=== PATIENT | female | born 1955 | race Caucasian/White ===

== ENCOUNTER 2023-11-23 09:29 | Outpatient (RCR) | payer OTHER, SELFPAY ==
[2023-11-23 09:40] VITALS: BP 144/56
[2023-11-23] MEDS: TYLENOL 1000 MG PO (09:50)
[2023-11-23] MEDS: BENADRYL 25 MG PO (09:50)
[2023-11-23] MEDS: INJECTAFER 265 MG IV (09:52)
[2023-11-23] MEDS: NSS 250 IV (09:52)
== END 2023-12-11 23:59 | disposition home or self-care (01) ==
LOC: OID 09:29
PROVIDERS: ATTENDING PHYSICIAN Physician Assistant; FAMILY PHYSICIAN Family Medicine
DX: T84.53XA Infection and inflammatory reaction due to internal right knee prosthesis, initial encounter (principal); M00.861 Arthritis due to other bacteria, right knee; B96.89 Other specified bacterial agents as the cause of diseases classified elsewhere; D50.9 Iron deficiency anemia, unspecified; E66.01 Morbid (severe) obesity due to excess calories; Z68.41 Body mass index [BMI] 40.0-44.9, adult; Z72.0 Tobacco use
CPT/HCPCS: 96365; J1439

== ENCOUNTER 2023-11-28 08:08 | Inpatient (IN) | payer OTHER, SELFPAY ==
--- NOTE | 2023-11-02 09:48 | CM ---
Patient is scheduled for a 2nd R TK Revision on 11/28/23. Spoke with patient prior to surgery via telephone. Patient had a R TKR, 1st stage R TK Revision at in 2022. Reintroduced role of Orthopedic Navigator. Patient reports that she lives with
her in a one story home. There are four steps to enter. She currently requires assistance with showers and otherwise functions independently. She uses either a rolling walker or wheel chair. She states that she doesn't go out of the house
much and has difficulty with steps. She also has a cane, raised toilet seat and shower seat. She has had VN services through VN. PCP is Dr. Yevgeniy Bain.
Discussed orthopedic program and post surgical plans. Reviewed anticipated length of stay and that goal is for her to return home at discharge. Discussed outpatient PT vs VN services. Patient is in agreement with tentative plan and will benefit from
VN services. She will have support from her when she goes home.
Patient will complete online education.
Plan: Orthopedic Navigator will remain available to assist with the care of patient and will reassess discharge needs after surgery.
--- NOTE | 2023-11-11 11:50 | HPS.HSE ---
Family Physician
-
Family Physician: Christopher Bain
Chief Complaint
-
Infection of right internal knee prosthesis.
History of Present Illness
The patient is a 68-year-old morbidly obese, female presenting today for an infection of her right internal knee prosthesis. The patient previously underwent a first stage revision of her previous right total knee arthroplasty in June
[address] Sim Carter. Infection was felt likely secondary to her continued tobacco abuse despite multiple advisements to stop tobacco products entirely. She was, apparently, smoking upwards of 2 packs of cigarettes per day
nga-operatively. A wound culture of the right knee taken intra-operatively would be positive for MSSA. Per infectious disease advisement, she was initially treated with Cephalexin 500 mg four times a day pre-operatively with a transition to IV
Ancef 2 grams every 8 hours post-procedure for 6 weeks. With treatment, inflammatory markers have steadily trended down and she is now ready for her second stage revision. She denies any current complaints today such as chest pain, shortness of
breath at rest, palpitations, nausea, vomiting, diarrhea, dizziness, lightheadedness, cough, sore throat, or fever.
Medical History
Past Medical History
Past Medical History: Reports Other
Additional Past Medical History:
1. 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 Sim Carter.
2. Osteoarthritis, status post right total knee arthroplasty, 03/14/2023, by Dr. Sim Carter.
3. Hypertension.
4. Hyperlipidemia.
5. Coronary artery disease, non-obstructive.
6. Mild tricuspid regurgitation.
7. Mild pulmonary hypertension.
8. Recurrent TIA, 1999 and 2001, with residual neuropathic pain of right lower extremity.
9. COPD.
10. Restrictive lung disease.
11. Obstructive sleep apnea, no current CPAP.
12. Chronic dyspnea on exertion, multifactorial.
13. GERD.
14. Hiatal hernia.
15. Lynn's esophagus.
16. Diverticulosis.
17. Melanoma, status post MOHS.
18. Multifactorial anemia, status post Injectafer.
19. Anxiety.
20. Prediabetes, A1c 6.3.
21. Morbid obesity, BMI 50.0.
22. Current tobacco abuse.
Past Surgical History: Reports Other
Additional Past Surgical History:
1. First stage revision of right total knee arthroplasty, 06/2023, by Dr. Sim Carter.
2. Right total knee arthroplasty, 03/2023, by Dr. Sim Carter.
3. Hysterectomy.
4. Right breast cyst excision.
5. Renal biopsy.
6. MOHS.
7. Bilateral cataract extraction.
8. Colonoscopy.
9. Endoscopy.
Social History
Tobacco: Smoker (Current 3-4 cigarette per day smoker. She currently uses a daily Nicoderm patch in attempts to quit smoking altogether prior to surgery. )
Alcohol: None
Drug: Marijuana (Occasional, social use. )
Personal:
Living: Other (The patient lives in a one-story home with her . She reports that her home has 4 steps to enter in.)
Family History
Family History: Not pertinent
Allergies / Home Medications
Allergy/Medication List:
Home medications:
1. Acetaminophen 1000 mg p.o. daily.
2. Albuterol sulfate 2 puffs inhaled every 4 hours as needed.
3. Amlodipine 10 mg p.o. daily.
4. Aspirin 81 mg p.o. daily.
5. Atorvastatin 40 mg p.o. daily.
6. Tylenol PM 2 tablets p.o. at bedtime as needed.
7. Colace 100 mg p.o. daily as needed.
8. Duloxetine 90 mg p.o. daily.
9. Cyclobenzaprine 10 mg p.o. at bedtime.
10. Furosemide 20 mg p.o. daily as needed.
11. Gabapentin 600 mg p.o. daily.
12. Gabapentin 900 mg p.o. at bedtime.
13. Losartan 100 mg p.o. daily.
14. Metoprolol succinate 25 mg p.o. at bedtime.
15. Omeprazole 40 mg p.o. daily.
16. Oxycodone 5 mg p.o. at bedtime.
17. Trelegy-Ellipta 1 inhalation daily.
18. Imodium 2 mg p.o. daily as needed.
19. Nicoderm 21 mg patch, 1 patch topical daily.
20. Mupirocin 1 application topical twice a day.
21. Cyanocobalamin 1000 mcg p.o. daily.
22. Ferrous sulfate 325 mg p.o. daily.
ALLERGIES: Codeine. Penicillin (remote). Bactrim. IV contrast.
Review of Systems
-
A 12 point ROS was completed and negative except as noted: Yes
Physical Exam
Vital Signs
Blood pressure 131/60. Heart rate 79. Respirations 18. Pulse ox 97% on room air.
Height 5 feet, 1.5 inches. Weight 122.1 kg. BMI 50.0.
Physical Exam
General: Well Developed, Well Nourished and No Apparent Distress
HEENT: NormoCephalic, Moist mucous membranes, Atraumatic and PERRLA
Respiratory: Other (Diminished breath sounds throughout. )
Cardiac: Regular Rhythm
GI: Soft, Non Tender, Non Distended and Other (Morbidly obese. )
Musculoskeletal: Other (Surgical incision of right knee well healed. Minimal warmth. No erythema. )
Skin: Warm and Dry
Neuro: AO x 3 and Nonfocal/grossly intact
Laboratory Results
-
DIAGNOSTIC STUDIES as of 11/11/2023: White blood cell count 8.0. Hemoglobin 9.3. Platelet count 321,000. ESR 56. Sodium 137. Potassium 3.9. BUN 14. Creatinine 0.8. Glucose 137. Hemoglobin A1c 6.3. Calcium 8.5. AST 16. ALT 10. CRP 21.6. Iron 44. TIBC
372. Ferritin 14.6. Vitamin B12 214. Folate 6.9. MRSA screen negative.
EKG previously provided by Cardiology.
Right knee fluid culture 11/15/2023: No growth as of 11/19/2023.
Nuclear stress test 01/06/2023: Fixed defect in the apical lateral segment, consistent with soft tissue attenuation/bowel attenuation. Ejection fraction is 78%. This is a moderate risk study due to the pharmacological agent used.
�
Echocardiogram 11/05/2022: Ejection fraction greater than 75%. Mild concentric left ventricular hypertrophy. There is a mid cavity gradient of 14 mmHg at rest and increasing to 63 mmHg with Valsalva. Trace mitral regurgitation. Mildly sclerotic
aortic valve with no stenosis. Mild tricuspid regurgitation.
Impression/Plan
-
CLEARANCES:
1. Primary medical, Dr. Yevgeniy Bain, cleared.
Primary medical phone number: [phone].
2. Dental waived.
IMPRESSION/PLAN:
1. Infection of internal right knee prosthesis in need of a second stage revision of her right total knee arthroplasty with Dr. Sim Carter on 11/27/2022. The benefits and risks of the procedure have been explained to the patient. The patient
understands these risks and wishes to proceed.
2. DVT prophylaxis: Aspirin with bilateral venous compression devices. Plasma flow devices were highly encouraged to be used upon discharge.
3. Multifactorial anemia: The patient's hemoglobin will be monitored closely during admission. She is scheduled to receive one dose of IV Injectafer per the recommendations of Hematology pre-operatively. She is aware to continue her oral iron and
vitamin B12 supplement pre-operatively. Her hemoglobin will be checked days before her surgery to ensure stability.
4. Current tobacco abuse: The patient is aware that she must stop tobacco products entirely given her previous infection. She is actively taking measures to cut down and, hopefully, quit tobacco use altogether prior to her day of surgery.
Patient's phone number: [phone].
Patient's contact (Piyush Mccoy - Spouse): [phone].
[2023-11-11 12:41] VITALS: BMI 50.0
[2023-11-11 14:20] LABS: Hematocrit 29.3 % (37.0-47.0); Hemoglobin 9.3 g/dL (12.0-16.0); Mean Corp Hgb Conc. 31.7 g/dL (33.0-37.0); Mean Corpuscular Volume 81.8 fL (81.0-99.0); Mean Platelet Volume 9.6 fL (7.4-10.4); Platelet Count 321 10^3/uL (130-400); Red Blood Cell Count 3.58 10^6/uL (4.20-5.40)
[2023-11-11 14:32] LABS: ALT (SGPT) 10 U/L (0-35); AST (SGOT) 16 U/L (14-36); Albumin 3.5 g/dl (3.5-5.0); Alkaline Phosphatase 128 U/L (38-126); Blood Urea Nitrogen 14 mg/dl (7-17); Calcium 8.5 mg/dl (8.4-10.2); Carbon Dioxide 29 mmol/L (22-30); Chloride 103 mmol/L (98-107); Estimated Creatinine Clearance 84 ml/min; Glucose 137 mg/dl (70-99); Potassium 3.9 mmol/L (3.5-5.1); Sodium 137 mmol/L (135-145); Total Bilirubin 0.4 mg/dl (0.2-1.3); eGFR > 60.00
[2023-11-11 14:55] LABS: Erythrocyte Sed Rate 56 mm/hour (0-20)
[2023-11-11 15:53] VITALS: BMI 50.0
[2023-11-11 16:15] LABS: Reticulocyte Count 1.9 % (0.4-2.8)
[2023-11-11 16:28] LABS: Iron 44 ug/dl (37-170)
[2023-11-11 16:37] LABS: Percent Saturation 11 % (20-50); Total Iron Binding Capacity 372 ug/dl (265-497)
[2023-11-11 16:57] LABS: Ferritin 14.6 ng/ml (11.1-264.0)
[2023-11-11 17:27] LABS: Vitamin B12 214 pg/ml (239-931)
[2023-11-11 17:28] LABS: Folate 6.9 ng/ml (2.76-20)
[2023-11-12 11:41] LABS: Glycohemoglobin (HgbA1c) 6.3 % (4.0-5.6)
[2023-11-23 14:52] LABS: Hematocrit 28.5 % (37.0-47.0)
--- NOTE | 2023-11-24 10:18 | W.PN.UPDATE ---
Update Note
Progress Note Update
Repeat hgb 9.0. Previous hgb 9.3 on 11/11/2023.
Of note, patient has received 1 dose of IV Injectafer prior at the outpatient infusion center.
Discussed results with both surgeon and patient.
The patient reports she has been compliant w/ OTC iron and vitamin B12 daily.
The patient denies any recent epistaxis, hematemesis, hemoptysis, hematuria, or black stools.
Last colonoscopy and endoscopy revealing hiatal hernia and colon polyps in 04/2021. No signs of bleeding at that time.
Patient aware that we can still proceed w/ 2nd stage revision; however, she was notified that post-procedural blood transfusion would be likely.
Benefits and risks of transfusion reviewed through phone call 11/24/2023.
The patient states that she accepts the risks of transfusion should she need one and would still like to proceed as planned.
We will monitor her hgb closely during admission and provide her w/ IV iron in the hopes of minimizing potential transfusion.
The phone number to [facility] was also provided to the patient again for future evaluation of her anemia.
[2023-11-28] VITALS (12 sets, daily range): BP systolic 114–159; BP diastolic 56–91; BMI 50.0
[2023-11-28] MEDS: TYLENOL 650 MG PO ×3 (10:46→23:55)
[2023-11-28] MEDS: NORMOSOL-R 1000 IV ×2 (10:46→17:05)
[2023-11-28] MEDS: MOBIC 15 MG PO (10:46)
[2023-11-28] MEDS: VANCOCIN 300 MG IV (12:20)
[2023-11-28] MEDS: VANCOCIN 300 ML IV (12:20)
--- NOTE | 2023-11-28 14:17 | W.PN.UPDATE ---
Update Note
Progress Note Update
Infection of internal R total knee prosthesis s/p 2nd stage revision of R TKA w/ Dr Carter 11/28/23
- status post 1st stage revision of R TKA, 06/27/2023, by Dr Carter and 6 weeks of IV Ancef q8h
DVT prophylaxis - ASA, b/l venous foot pumps
- Plasma flow devices HIGHLY encouraged upon d/c d/t current tobacco
HTN - + parameters - monitor BP
Recurrent TIA, 1999 and 2001, with residual neuropathic pain of right lower extremity - continue statin
- Start full dose ASA
- Resume Gabapentin and Duloxetine
COPD
Restrictive lung disease
Obstructive sleep apnea, no current CPAP
Chronic dyspnea on exertion, multifactorial
- Continue Trelegy w/o interruption
- Order standing order Duoneb tx
- IS
- Add supplemental O2 HS
GERD, Hiatal hernia, and Lynn's esophagus - continue PPI therapy
Multifactorial anemia, status post Injectafer x1 pre-op - monitor H&H
- Start IV iron during admission
- Continue daily PO Vitamin B12
- Prefer to hold transfusion unless hgb <7, symptomatic
Current tobacco abuse - 6 cigs/day (initially 2 packs per day)
- Continue Nicoderm patch
- Smoking cessation STRESSED in the setting of infection
OA, status post R TKA, 03/14/2023, by Dr Carter
Hyperlipidemia
Coronary artery disease, non-obstructive
Mild tricuspid regurgitation
Mild pulmonary hypertension
Diverticulosis
Melanoma, status post MOHS
Anxiety
Prediabetes, A1c 6.3
Morbid obesity, BMI 50.0
[2023-11-28] MEDS: DILAUDID 0.5 MG IV ×3 (16:08→22:37)
--- NOTE | 2023-11-28 16:11 | PTCARENOTE ---
Patient complaining of Headache 06/[address] Lopez at bedside assessing patient. She is vague and says she feels bad all over and will like to go home.
[2023-11-28] MEDS: OFIRMEV 100 IV (16:18)
--- NOTE | 2023-11-28 16:33 | PTCARENOTE ---
Patient medicated with Dilaudid 0.5mg and Ofirmev 1gm I.V she is presently sleeping
--- NOTE | 2023-11-28 17:27 | PTCARENOTE ---
Patient woke up stated headache is gone, knee is much more comfortable. D/C to her room stable 4LNC maintained
--- NOTE | 2023-11-28 17:44 | PTCARENOTE ---
Pt arrived to [facility] from PACU s/p R TKA 2nd revision. Pt drowsy but easily arousable to voice, AAOx3. Pt on 2.5 L NC satting 94%, IVF infusing, R knee aquacel dressing C/D/I with diego wrap over top. NV intact. Pt states no pain at this time. Pt
oriented to call shrestha and room, bed locked and in lowest position, call shrestha within reach.
[2023-11-28] MEDS: TYLENOL PO (17:56)
[2023-11-28] MEDS: LIPITOR 40 MG PO (18:16)
[2023-11-28] MEDS: CYMBALTA DELAYED RELEASE 90 MG PO (18:16)
[2023-11-28] MEDS: PROTONIX 40 MG PO (18:16)
[2023-11-28] MEDS: VITAMIN B-12 1000 MCG PO (18:16)
[2023-11-28] MEDS: NICODERM TRANSDERMAL 21 MG TRANSDERM (18:16)
[2023-11-28] MEDS: ASPIRIN 325 MG PO (18:16)
[2023-11-28] MEDS: FERRLECIT 110 MG IV (18:16)
[2023-11-28] MEDS: DILAUDID 4 MG PO ×2 (19:28→23:51)
[2023-11-28] MEDS: DUONEB INH (19:40)
[2023-11-28] MEDS: SYMBICORT 160/4.5 MCG INHALER 2 PUFF INH (19:41)
[2023-11-28] MEDS: DUONEB 3 ML INH (19:41)
[2023-11-28] MEDS: NEURONTIN 900 MG PO (21:18)
[2023-11-28] MEDS: COLACE 100 MG PO (21:19)
[2023-11-28] MEDS: SENOKOT 17.1999999999999993 MG PO (21:21)
[2023-11-28] MEDS: TORADOL 10 MG IV (21:21)
[2023-11-28] MEDS: BACTROBAN 2% OINTMENT 1 APPLIC NASAL (21:22)
[2023-11-28] MEDS: ANCEF 5 IV (21:22)
--- NOTE | 2023-11-28 22:40 | PTCARENOTE ---
Pt complains of unrelieved pain despite receiving PRN and scheduled medications. Rates 10/10 pain to R thigh/groin. States 'something is wrong'.
+ sensation, + pulses, moving extremity. [employer] covering house contacted w/complaints. Electronic orders received for 1x dose of IV dilaudid (refer to MAR). Updated on plan of care. Monitoring continues.
[2023-11-29] MEDS: VANCOCIN 200 IV (00:35)
[2023-11-29 03:20] VITALS: BP 138/84
[2023-11-29] MEDS: TYLENOL 650 MG PO ×2 (04:31→12:56)
[2023-11-29] MEDS: ANCEF 5 IV (04:32)
[2023-11-29] MEDS: DILAUDID 4 MG PO (04:39)
[2023-11-29 06:56] LABS: Hematocrit 29.9 % (37.0-47.0); Hemoglobin 9.4 g/dL (12.0-16.0)
[2023-11-29 07:37] VITALS: BP 107/70
--- NOTE | 2023-11-29 07:55 | W.PN.ORTHO ---
Today's Communication / Plan
-
Await PT and OT recs.
Await further recs from ID re: [email or web address].
D/c probable for later today if remaining clinically stable.
Assessment
.
Distal Motor Intact: Yes
Dressing:
Small area of old incisional bleeding towards inferior end of dressing. Dressing otherwise C/D/I.
Assessment:
Infection of internal R total knee prosthesis s/p 2nd stage revision of R TKA w/ Dr Carter 11/28/23
- status post 1st stage revision of R TKA, 06/27/2023, by Dr Carter and 6 weeks of IV Ancef q8h for MSSA
- will consult ID for recs re: suppressive abx upon d/c given pt's continued tobacco use, super morbid obesity, and h/o medical non-compliance
DVT prophylaxis - ASA, b/l venous foot pumps
- Plasma flow devices HIGHLY encouraged upon d/c d/t current tobacco
HTN - + parameters - BPs stable
Recurrent TIA, 1999 and 2001, with residual neuropathic pain of right lower extremity - continue statin
- Continue full dose ASA x4 weeks
- Resumed Gabapentin and Duloxetine
COPD
Restrictive lung disease
Obstructive sleep apnea, no current CPAP
Chronic dyspnea on exertion, multifactorial
- Continue Trelegy w/o interruption
- Continue standing order Duoneb tx during admission
- IS
- Added supplemental O2 HS
GERD, Hiatal hernia, and Lynn's esophagus - continue PPI therapy
Multifactorial anemia, status post Injectafer x1 pre-op - H&H 9.0 11/22 -> 9.4 today
- IV iron during admission. Will get 1 dose of IV Injectafer w/ outpatient infusion center this week.
- Continue daily PO Vitamin B12
- Prefer to hold transfusion unless hgb <7, symptomatic
Current tobacco abuse - 6 cigs/day (initially 2 packs per day)
- Continue Nicoderm patch. Pt to discuss Chantix w/ PCP upon d/c
- Smoking cessation STRESSED in the setting of infection
OA, status post R TKA, 03/14/2023, by Dr Carter
Hyperlipidemia
Coronary artery disease, non-obstructive
Mild tricuspid regurgitation
Mild pulmonary hypertension
Diverticulosis
Melanoma, status post MOHS
Anxiety
Prediabetes, A1c 6.3
Morbid obesity, BMI 50.0
Plan
.
Surgery / Date: 2nd stage revision of R TKA w/ Dr Carter 11/28/23
DVT Prophylaxis: Aspirin
Activity:
Out of bed.
PT/OT
Discharge Plan: Home w/ VN
Subjective
.
.:
Patient examined resting in bed this AM.
Reporting high pain levels overnight; however, she appears comfortable and reports her pain to be more tolerable this AM.
Denies any other new complaints. States she 'feels good'.
Eager for possible d/c later today.
Vital Signs and Labs
.
Vital Signs and Labs:
Lab Results
11/29/23 06:11
11/11/23 12:55
Temp Pulse Resp BP Pulse Ox
98.3 F 87 18 107/70 94
11/29/23 07:37 11/29/23 07:37 11/29/23 07:37 11/29/23 07:37 11/29/23 07:37
Non-invasive Hgb result: 14.8
Physical Exam
-
HEENT: No pallor, cyanosis, or jaundice. Throat clear.
NECK: Supple. No JVD.
RESPIRATORY: Lungs clear to auscultation.
CVS: S1, S2 normal. RRR.�
ABDOMEN: Soft, non-tender. No distension. Morbidly obese.
EXTREMITIES: Strength equal, no calf pain with palpation/dorsiflexion. Calves soft.
IMMIGRATION INVESTIGATOR: AOx3. No focal deficits. global sales executive grossly intact
[2023-11-29] MEDS: TORADOL 30 MG IV (08:09)
[2023-11-29] MEDS: ASPIRIN 325 MG PO (08:14)
[2023-11-29] MEDS: TYLENOL PO (08:15)
[2023-11-29] MEDS: COLACE 100 MG PO (08:15)
[2023-11-29] MEDS: CYMBALTA DELAYED RELEASE 90 MG PO (08:16)
[2023-11-29] MEDS: NEURONTIN 600 MG PO (08:17)
[2023-11-29] MEDS: LIPITOR 40 MG PO (08:17)
[2023-11-29] MEDS: LIDOCAINE 4% PATCH 2 PATCH TOPICAL (08:17)
[2023-11-29] MEDS: NICODERM TRANSDERMAL 21 MG TRANSDERM (08:18)
[2023-11-29] MEDS: SENOKOT 17.1999999999999993 MG PO (08:19)
[2023-11-29] MEDS: PROTONIX 40 MG PO (08:19)
[2023-11-29] MEDS: TOPROL XL PO (08:19)
[2023-11-29] MEDS: VITAMIN B-12 1000 MCG PO (08:20)
[2023-11-29] MEDS: TOPROL XL 25 MG PO (08:28)
[2023-11-29] MEDS: BACTROBAN 2% OINTMENT 1 APPLIC NASAL (08:30)
--- NOTE | 2023-11-29 08:38 | CM ---
Addendum entered by Veronica Akers 11/29/23 10:19:
Patient did very well in therapy. She has no concerns about going home and has updated her .
Original Note:
Reviewed chart and held rounds with PT, OT and nursing. Patient admitted as planned for 2nd stage Revision R TKR. Met with patient at bedside. Confirmed information previously obtained for assessment. Also discussed discharge plans. The plan is for
patient to return home at discharge. She will have support from her when she goes home. Reviewed VN services including start of care (tentatively 11/29), services to be ordered (PT, SN) and frequency/duration of services. Options list
provided and PAC data reviewed. Patient selects VN.
Patient has a rolling walker, raised toilet seat, shower seat and a cane at home.
VN referral was completed and sent to [facility] through [employer] with request for start of care on 11/29. Confirmation received of their ability to accept case. reshipping clerk to fax discharge instructions to [facility] when complete.
Patient will use [facility] pharmacy for discharge prescriptions.
[2023-11-29] MEDS: SYMBICORT 160/4.5 MCG INHALER 2 PUFF INH (09:02)
[2023-11-29] MEDS: SPIRIVA RESPIMAT 2.5 MCG 2 PUFF INH (09:02)
[2023-11-29] MEDS: DUONEB 3 ML INH ×2 (09:03→11:20)
[2023-11-29 09:35] VITALS: BP 131/74
[2023-11-29 09:49] VITALS: BP 131/74; PULSE 101; O2SAT 95
[2023-11-29 11:52] VITALS: BP 158/66
--- NOTE | 2023-11-29 13:54 | CON.ID ---
Consultation
-
Date/Time Consultation Requested: 11/29/2023 09:16
Date/Time Consultation Performed: 11/29/2023 1330
Requesting Provider: Dr. Carter
Performing Provider: Dr. Rodriguez
Reason for Consultation: Need for ongoing abx following second stage revision.
Chief Complaint / Past History
History of Present Illness
Gwendolyn Mccoy is a 68-year-old female with a history of COPD and tobacco abuse being evaluated regarding ongoing antibiotics following knee replacement. History is obtained from chart review, along with patient interview, and review of old records
contained in the hospital EMR system.
The patient underwent right knee replacement on March 14, 2023. Thereafter she reported ongoing knee pain following surgery and when stitches were ultimately taken out there was significant drainage from the incision. She was placed on a course of
oral antibiotics but the knee continued to remain erythematous, swollen and painful. With a second course of oral antibiotics the drainage resolved but the knee remained swollen and painful. Outpatient arthrocentesis of the knee was performed, and
cultures grew MSSA. She underwent removal of hardware on 06/27/2023, with spacer placement and then was placed on a course of IV cefazolin x 12 weeks. Following completion of antibiotics she was observed closely, and on 11/28 underwent second stage
reimplantation. Infectious Diseases is asked to comment upon further antimicrobial therapy in the context of this high risk patient with morbid obesity and ongoing tobacco use.
Past History
Additional Past Medical History:
Hypertension
GERD
hiatal hernia
Class III obesity (BMI ~50)
Lynn's esophagus
Anxiety
Neuropathy
COPD/chronic bronchitis
history of TIA
Sleep apnea
Additional Past Surgical History:
Right TKA (03/14/23); MSSA infection; Stage 1 revision 06/27/23; 6 weeks abx; 2nd stage revision 11/28/23
Hysterectomy
Allergy History:
codeine Allergy (Verified 11/28/23 16:28)
Nausea
Iodinated Contrast Media Allergy (Verified 11/28/23 10:31)
Rash
Penicillins Allergy (Verified 11/28/23 10:31)
Hives
Tolerates keflex/cefazolin
sulfamethoxazole [From Bactrim] Allergy (Verified 11/28/23 10:31)
Itching
Medications Reviewed: Yes
Current Antibiotics:
Cefazolin
Social History
Tobacco: Smoker (10 cigs/day; 50PY)
Alcohol: None
Drug: None
Living: Alone
Review of Systems
Vital Signs
Temp Pulse Resp BP Pulse Ox
98.9 F 95 16 158/66 95
11/29/23 11:52 11/29/23 11:52 11/29/23 11:52 11/29/23 11:52 11/29/23 11:52
Physical Exam
Physical Exam
Constitutional: No Acute Distress, Comfortable, Non-toxic and Obese
Head: Normocephalic
Eyes: Pupils Equal, Pupils Round, No Conjunctival Hemorrhage and Sclera Anicteric
Oral: No Thrush and No Ulcers
Cardiovascular: S1/S2; Negative S3/S4 or Murmur
Pulmonary: Non Labored; Negative Wheezes, Rales or Rhonchi
Gastrointestinal: Soft, Non Tender and Non Distended
Extremities: Edema and Erythema (Mild; LLE)
Skin: Warm and Dry; Negative Rash or Jaundice
Neurological: Awake and Alert
Psychological: Calm
.
Lab / Diagnostic Study Results
11/29/23 06:11
11/11/23 12:55
ESR 56 mm/hour (0-20) H 11/11/23 12:55
C-Reactive Protein 21.60 mg/L (0.0-10.00) H 11/11/23 12:55
Microbiology Results
Micro:
11/11/23 12:55 MRSA Screen - Final
Nose No Methicillin Resistant Staphylococcus aureus isolated.
Assessment / Plan
Right knee PJI 2* MSSA
s/p stage 1 revision 06/27/23; 12 weeks of cefazolin; 10 wks off abx.
s/p stage 2 revision 11/28/2023
Class III obesity BMI 50
Ongoing tobacco abuse
Hypertension
GERD
hiatal hernia
Lynn's esophagus
Anxiety
Neuropathy
COPD/chronic bronchitis
history of TIA
Sleep apnea
Recommendations:
Patient successfully completed a 12-week course of IV antibiotics, and has remained off of antibiotics for approximately 10 weeks.
Unfortunately, she remains high risk for recurrence of infection given morbid obesity and ongoing tobacco use.
She was counseled extensively on the dangers of ongoing tobacco use, which include lung damage and risk of recurrence of infection, and advised to stop smoking immediately.
Because of increased risk of infection, she will be placed on Keflex 500 mg p.o. twice daily for at least 6 months.
I will see her in the office in follow-up in approximately 1 month's time.
Care Review
Plan reviewed with: Physician (Ortho)
[2023-11-29] MEDS: CYKLOKAPRON 1300 MG PO (14:41)
--- NOTE | 2023-11-29 14:48 | W.DS.TRANS ---
DC Summary - Film Writer
-
Discharge Instructions:
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
Coolidge 11/28/23
Diet Regular
Activity As tolerated,With Walker
Driving Restrictions Not until seen by your Dr
Bathing Restrictions OK to Shower
Blood Work CBC without diff (ATTN: Hemoglobin) on Tuesday, 3
, with results to primary care for further
anemia management. A script was given to you
upon discharge.
Other Services VN,PT
Wound Care Dressing to be removed 1 week post-surgery.
[place] to be removed in 2 weeks at follow-up
appointment with surgeon's office.
Instructions:
Stand-Alone Forms: Total Hip/Knee Replacement D/C
Changes to Home Medications: Yes
Discharge Medications:
DC Medications w/original date entered in [employer]
atorvastatin 40 mg tablet 40 mg PO DAILY High Cholesterol 12/14/22
fluticasone fur. 200 mcg-umeclid 62.5 mcg-vilant 25 mcg inhalat.powder (Trelegy Ellipta) 1 inh inhalation DAILY 12/14/22
omeprazole 40 mg capsule,delayed release 40 mg PO DAILY 12/14/22
albuterol sulfate 90 mcg/actuation aerosol inhaler 2 puff inhalation Q4HPRN PRN SOB 12/21/22
mupirocin 2 % topical ointment 1 applic topical BID sores on arms 06/17/23
gabapentin 300 mg capsule 600 mg PO DAILY 11/10/23
gabapentin 300 mg tablet 900 mg PO HS 11/11/23
metoprolol succinate 25 mg tablet,extended release 24 hr 25 mg PO DAILY 11/11/23
nicotine 21 mg/24 hr daily transdermal patch 1 patch transdermal DAILY 11/11/23
cyanocobalamin (vitamin B-12) 1,000 mcg tablet 1,000 mcg PO DAILY 11/21/23
ferrous sulfate 325 mg (65 mg iron) tablet 325 mg PO DAILY 11/24/23
Saccharomyces boulardii 250 mg capsule (Florastor) 250 mg PO BID #180 caps 11/29/23
acetaminophen 500 mg tablet (Pain Relief Extra Strength (acetaminophen)) 1,000 mg PO Q6H #0 tabs 11/29/23
amlodipine 10 mg tablet 10 mg PO DAILY Blood Pressure #0 tabs 11/29/23
aspirin 325 mg tablet 325 mg PO DAILY #30 tabs 11/29/23
cephalexin 500 mg capsule 500 mg PO BID #180 caps 11/29/23
cyclobenzaprine 10 mg tablet 10 mg PO HS PRN muscle spasm #0 tabs 11/29/23
docusate sodium 100 mg capsule 100 mg PO BID #30 caps 11/29/23
duloxetine 60 mg capsule,delayed release 90 mg PO DAILY Mental Health/Anxiety #0 caps 11/29/23
furosemide 20 mg tablet 20 mg PO DAILY #0 tabs 11/29/23
hydromorphone 2 mg tablet 2 - 4 mg PO Q4HPRN PRN moderate-severe pain #35 tabs 11/29/23
lidocaine 4 % topical patch 2 patch topical DAILY #30 ea 11/29/23
losartan 100 mg tablet 100 mg PO DAILY #0 tabs 11/29/23
meloxicam 15 mg tablet 15 mg PO DAILY #14 tabs 11/29/23
ondansetron HCl 4 mg tablet 4 mg PO Q6H PRN nausea and vomiting #30 tabs 11/29/23
sennosides 8.6 mg tablet (Senna Laxative) 17.2 mg PO BID #30 tabs 11/29/23
Home Medication Changes
Saccharomyces boulardii 250 mg capsule (Florastor) 250 mg PO BID #180 caps 11/29/23
acetaminophen 500 mg tablet (Pain Relief Extra Strength (acetaminophen)) 1,000 mg PO Q6H #0 tabs 11/29/23
aspirin 325 mg tablet 325 mg PO DAILY #30 tabs 11/29/23
cephalexin 500 mg capsule 500 mg PO BID #180 caps 11/29/23
docusate sodium 100 mg capsule 100 mg PO BID #30 caps 11/29/23
hydromorphone 2 mg tablet 2 - 4 mg PO Q4HPRN PRN moderate-severe pain #35 tabs 11/29/23
lidocaine 4 % topical patch 2 patch topical DAILY #30 ea 11/29/23
meloxicam 15 mg tablet 15 mg PO DAILY #14 tabs 11/29/23
ondansetron HCl 4 mg tablet 4 mg PO Q6H PRN nausea and vomiting #30 tabs 11/29/23
sennosides 8.6 mg tablet (Senna Laxative) 17.2 mg PO BID #30 tabs 11/29/23
Pending Results: No
--- NOTE | 2023-11-29 15:17 | W.PN.UPDATE ---
Update Note
Progress Note Update
Was alerted by Dr. Rodriguez of ID that patient's surgical dressing was notably saturated.
Bleeding likely exacerbated by frequent ambulation noted throughout the day.
Patient was given 1x dose of TXA to help minimize bleeding.
Dressing was changed by myself w/ assistance of ROBERTA Fuchs.
Elizabeth were well approximated and intact. One small area of active incisional bleeding was noted towards the inferior end of her incision.
I believe her bleeding should respond well to the TXA as well as a pressure dressing w/ CURLY wrap prior to d/c.
Pt appearing anxious to go home. States she still feels well and would prefer 'not to sleep in a hospital bed another night.'
Should her bleeding improve, pt can still be d/c later today.
Pt is aware to keep a close eye on her bleeding upon d/c.
She will be provided with VN services upon d/c who will also be on the look out for further bleeding.
== END 2023-11-29 15:59 | disposition home health service (06) | DRG 467 ==
LOC: 2 SOUTH 08:08
PROVIDERS: Physician Assistant; ADMITTING PHYSICIAN Specialist; FAMILY PHYSICIAN Family Medicine; OTHER PHYSICIAN Internal Medicine Infectious Disease
PROC: 0SPC0JZ Removal of Synthetic Substitute from Right Knee Joint, Open Approach (ICD-10-PCS; 2023-11-28)
PROC: 0SRC0J9 Replacement of Right Knee Joint with Synthetic Substitute, Cemented, Open Approach (ICD-10-PCS; 2023-11-28)
PROC: 0SBC0ZZ Excision of Right Knee Joint, Open Approach (ICD-10-PCS; 2023-11-28)
DX: M17.11 Unilateral primary osteoarthritis, right knee (principal); Z68.43 Body mass index [BMI] 50.0-59.9, adult; E66.01 Morbid (severe) obesity due to excess calories; I10 Essential (primary) hypertension; E78.5 Hyperlipidemia, unspecified; I25.10 Atherosclerotic heart disease of native coronary artery without angina pectoris; I07.1 Rheumatic tricuspid insufficiency; I27.20 Pulmonary hypertension, unspecified; F17.210 Nicotine dependence, cigarettes, uncomplicated; J98.4 Other disorders of lung; G47.33 Obstructive sleep apnea (adult) (pediatric); J44.89 Other specified chronic obstructive pulmonary disease; K21.9 Gastro-esophageal reflux disease without esophagitis; K44.9 Diaphragmatic hernia without obstruction or gangrene; K22.70 Barrett's esophagus without dysplasia; T84.53XD Infection and inflammatory reaction due to internal right knee prosthesis, subsequent encounter; B95.61 Methicillin susceptible Staphylococcus aureus infection as the cause of diseases classified elsewhere; Y83.8 Other surgical procedures as the cause of abnormal reaction of the patient, or of later complication, without mention of misadventure at the time of the procedure; Y79.2 Prosthetic and other implants, materials and accessory orthopedic devices associated with adverse incidents; K57.90 Diverticulosis of intestine, part unspecified, without perforation or abscess without bleeding; F41.9 Anxiety disorder, unspecified; D50.9 Iron deficiency anemia, unspecified; R73.03 Prediabetes; Z86.73 Personal history of transient ischemic attack (TIA), and cerebral infarction without residual deficits; Z85.820 Personal history of malignant melanoma of skin; Z91.199 Patient's noncompliance with other medical treatment and regimen due to unspecified reason; Z79.2 Long term (current) use of antibiotics; Z88.5 Allergy status to narcotic agent; Z88.0 Allergy status to penicillin; Z88.2 Allergy status to sulfonamides; Z88.1 Allergy status to other antibiotic agents; Z91.041 Radiographic dye allergy status; G62.9 Polyneuropathy, unspecified
CPT/HCPCS: 36415; 73560; 80053; 82607; 82728; 82746; 83036; 83540; 83550; 85014; 85018; 85027; 85045; 85652; 86140; 86850; 86900; 86901; 87070; 94640; 97116; 97161; 97166; 97535; C1713; C1762; C1776; J2916

== ENCOUNTER 2024-03-08 17:56 | Outpatient (RCR) | payer OTHER, SELFPAY | END 2024-03-08 23:59 | disposition home or self-care (01) | LOC: RPT 17:56 | PROVIDERS: ATTENDING PHYSICIAN Specialist; FAMILY PHYSICIAN Family Medicine | DX: Z47.1 Aftercare following joint replacement surgery (principal); Z73.6 Limitation of activities due to disability; Z96.651 Presence of right artificial knee joint | CPT/HCPCS: 97110; 97162 ==

== ENCOUNTER 2024-04-05 19:05 | Outpatient (RCR) | payer OTHER, SELFPAY | END 2024-04-05 23:59 | disposition home or self-care (01) | LOC: RPT 19:05 | PROVIDERS: ATTENDING PHYSICIAN Specialist; FAMILY PHYSICIAN Family Medicine | DX: Z47.1 Aftercare following joint replacement surgery (principal); Z73.6 Limitation of activities due to disability; Z96.651 Presence of right artificial knee joint | CPT/HCPCS: 97110 ==

== ENCOUNTER → 2024-06-20 09:25 | Outpatient (REF) | payer OTHER, SELFPAY ==
--- NOTE | 2024-06-20 14:11 | CARDSERVDEF ---
Echocardiogram with Definity completed after protocol screening completed. Allergies verified.
Patent IV site: ___RAC__
IV site flushed with 0.9% NaCl pre and post administration.
Diluted bolus method utilized to enhance visualization of ventricular melgar.
Total volume given: __2__ mL
Patient tolerated all procedures well without complications.
== END ==
LOC: HWRCS 09:25
PROVIDERS: ATTENDING PHYSICIAN Internal Medicine Interventional Cardiology; FAMILY PHYSICIAN Family Medicine
DX: I10 Essential (primary) hypertension (principal)
CPT/HCPCS: 93306; Q9957

== ENCOUNTER 2024-10-27 16:45 | Emergency (ER) | payer OTHER, SELFPAY ==
[2024-10-27 16:47] VITALS: BP 178/100
--- NOTE | 2024-10-27 21:03 | ED.GENMED ---
History of Present Illness
General
Chief Complaint: Skin Surface Trauma
Source: patient
Exam Limitations: none
Time Seen by Provider: 10/27/24 20:17
Nursing documentation reviewed up to this point in time: agreed with
History of Present Illness
History of Present Illness:
Patient is 69-year-old female presenting for evaluation of skin tear to her right hand. Patient states she hit her hand on the washing machine on tearing the skin on her right dorsal hand. She was able to get bleeding to stop.
However�wound has become increasingly painful since and she now describes it as 'throbbing'throughout her right hand. Patient denies any fevers or chills. No numbness/tingling in right hand.
Patient concerned that she may be developing infection as she is prone to skin infections.
Patient does report an allergy to penicillin although states she takes Keflex often without any difficulty. Patient states her last tetanus shot was definitely within the past 5 years.
Past History
Past History
ED Past Medical History: Cancer (Skin), COPD (With sleep apnea), CVA (Actually TIAs), GERD, HTN and Other
ED Past Surgical History: Gynecological
Social History
Tobacco: Smoker
Alcohol: None
Drug: None
Personal:
Living: with family
Review of Systems
Review of Systems
Allergies reviewed?: Yes
All Other Systems: ROS reviewed and negative except as documented in HPI and ROS
Phy Exam
Physical Exam
Physical Exam:
Vitals: Hypertensive. Afebrile
General: Patient is well appearing, no acute distress. Nontoxic.
Skin: 2 cm X 3 cm skin tear on right dorsal hand with mild surrounding erythema and warmth. No red streaking. No purulent
Head: Normocephalic, atraumatic
Throat: Protecting airway
Neck: Normal ROM, no cervical spine tenderness
Cardiac: Regular rate
Pulm: No apparent respiratory distress
Abdomen: Nondistended
Extremities: Skin tear right dorsal hand as described above. Mild surrounding erythema and warmth. Normal cracker sprayer strength. Capillary refill WNL. Palpable right radial pulse.
Neuro: Grossly intact
Psychiatric: Normal affect.
Course
Orders/Labs/Results
Orders:
Orders
10/27/24 22:03
Cephalexin Monohydrate [Keflex] 500 mg PO NOW STA
Vital Signs
Initial and Last Documented VS:
Initial Vital Signs
Temp Pulse Resp BP Pulse Ox
99.0 F 104 20 178/100 99
10/27/24 16:47 10/27/24 16:47 10/27/24 16:47 10/27/24 16:47 10/27/24 16:47
Last Documented Vital Signs
Temp Pulse Resp BP Pulse Ox
99.0 F 104 20 178/100 99
10/27/24 16:47 10/27/24 16:47 10/27/24 16:47 10/27/24 16:47 10/27/24 16:47
Procedures
Laceration Closure
Right Dorsal Hand:
Status of Wound: clean
Size of Wound in cm: 3
Description of Wound Edges: flap-poorly vascularized
Preparation: cleaned with saline
Revision/Debridement: routine- no revision
Wound exploration: explored to base- no FB
Type of Closure: other (Steri-Strips to approximate wound edges of skin tear)
MDM/Problems Addressed
Differential Diagnosis Includes:
Not limited to: Skin tear, cellulitis, etc.
MDM/Problems Addressed:
69-year-old female presenting with skin tear to right dorsal hand occurring 3 days ago with worsening pain and redness. No fevers. Patient hypertensive on arrival likely secondary to pain. On exam�patient does have skin tear to right dorsal hand
with surrounding erythema and warmth. No red streaking or purulent drainage. Wound thoroughly irrigated with normal saline. Attempted loose approximation of skin tear flap with Steri-Strips. Surrounding erythema possibly inflammatory although
concern for developing cellulitis. Will start patient on Keflex. PCN allergy noted although patient states she has taken Keflex times in the past and tolerates it well. Patient given first dose in the emergency department. Feel patient stable
for discharge home with wound care instructions, return precautions. She will follow with PCP. Patient comfortable with this plan. Case discussed with attending physician.
Chronic conditions affecting care:
Hypertension
Acute Exacerbation and/or Progression of Chronic Illness:
Acutely hypertensive
*Pulse Oximetry
Patient hypoxic: no
*EKG
Interpreted by ED Provider?: NA
*Instantizer Operator Interpretation
Rate: Instantizer Operator- N/A
*Critical Care Note
Total Time (30-74mins, 75-104mins- exclusive of procedures): Not Applicable
ED Attending Note
-
Portions of this chart may have been created with voice recognition software.� Occasional wrong word or��sound alike� substitutions may have occurred due to the inherent limitations of voice recognition software.
Discharge Plan
Departure
Patient Disposition: Home (Routine Discharge)
Date of Disposition: 10/27/24
Time of Disposition: 22:05
Patient with high blood pressure during this ER visit?: Yes
Condition: Good
Covid-19: Not Applicable
Discharge Problem:
Skin tear of right upper extremity, Cellulitis
Instructions: Cellulitis (skin infection) in adults - ED discharge instructions, Wound care - ED discharge instructions, BLOOD PRESSURE
Prescriptions:
New
cephalexin 500 mg capsule
500 mg PO QID 5 Days Qty: 20 0RF
No Action
atorvastatin 40 mg Tablet
40 mg PO DAILY
omeprazole 40 mg Capsule,Delayed Release(Dr/Ec)
40 mg PO DAILY
Trelegy Ellipta 200-62.5-25 mcg Blister With Device
1 inh INHALATION DAILY
albuterol sulfate 90 mcg/actuation Hfa Aerosol Inhaler
2 puff INHALATION Q4HPRN PRN (Reason: SOB)
mupirocin 2 % Ointment
1 applic TOPICAL BID
gabapentin 300 mg capsule
600 mg PO DAILY
gabapentin 300 mg Tablet
900 mg PO HS
nicotine 21 mg/24 hr Patch 24 Hour
1 patch TRANSDERMAL DAILY
metoprolol succinate 25 mg Tablet Extended Release 24 Hr
25 mg PO DAILY
cyanocobalamin (vitamin B-12) 1,000 mcg Tablet
1,000 mcg PO DAILY
ferrous sulfate 325 mg (65 mg iron) Tablet
325 mg PO DAILY
aspirin 325 mg Tablet
325 mg PO DAILY Qty: 30 0RF
Rx Instructions:
Take daily x4 weeks for blood clot prevention.
docusate sodium 100 mg Capsule
100 mg PO BID Qty: 30 0RF
hydromorphone 2 mg Tablet
2 - 4 mg PO Q4HPRN PRN (Reason: moderate-severe pain) Qty: 35 0RF
Rx Instructions:
1 tab for moderate pain, 2 if severe.
Dx total joint.
lidocaine 4 % Adhesive Patch,Medicated
2 patch topical DAILY Qty: 30 0RF
Rx Instructions:
Over the counter. 12 hours on, 12 hours off.
Apply to sides of right knee/thigh.
meloxicam 15 mg Tablet
15 mg PO DAILY Qty: 14 0RF
Rx Instructions:
Take with food.
DO NOT take within 2 hours of Aspirin.
sennosides [Senna Laxative] 8.6 mg Tablet
17.2 mg PO BID Qty: 30 0RF
ondansetron HCl 4 mg tablet
4 mg PO Q6H PRN (Reason: nausea and vomiting) Qty: 30 0RF
acetaminophen [Pain Relief ES (acetaminophen)] 500 mg tablet
1,000 mg PO Q6H Qty: 0 0RF
Rx Instructions:
DO NOT exceed >4000 mg daily.
amlodipine 10 mg Tablet
10 mg PO DAILY Qty: 0 0RF
Rx Instructions:
HOLD IF systolic blood pressure <130 while on Dilaudid.
furosemide 20 mg tablet
20 mg PO DAILY Qty: 0 0RF
Rx Instructions:
HOLD IF systolic blood pressure <140 while on Dilaudid.
losartan 100 mg Tablet
100 mg PO DAILY Qty: 0 0RF
Rx Instructions:
HOLD IF systolic blood pressure <130 while on Dilaudid.
duloxetine 60 mg Capsule,Delayed Release(Dr/Ec)
90 mg PO DAILY Qty: 0 0RF
Rx Instructions:
Home medication.
cyclobenzaprine 10 mg Tablet
10 mg PO HS PRN (Reason: muscle spasm) Qty: 0 0RF
Rx Instructions:
Home medication. Caution with Dilaudid - can cause drowsiness.
Take only as directed.
cephalexin 500 mg capsule
500 mg PO BID Qty: 180 1RF
Rx Instructions:
Start night of discharge and continue twice a day.
Take with probiotic.
Saccharomyces boulardii [Florastor] 250 mg capsule
250 mg PO BID Qty: 180 0RF
Rx Instructions:
Over the counter. Take while on antibiotic.
If unavailable, choose a different probiotic.
Referrals:
Suzi Murillo CRNP [Family Provider] - Follow up in 2-3 days
Activity Restrictions/Additional Instructions:
Return to the emergency department with any signs of worsening infection including fevers, chills, significant redness, pain, swelling around wound, pus draining from wound, or any other concerns
-As discussed�is important you keep your wound clean and dry. Keep covered as wound continues to heal
-A prescription for Keflex has been sent to your pharmacy. You should take this 4 times a day for the next 5 days. You were given your first dose in the emergency department
-Follow-up with primary care in a few days to ensure that symptoms are improving/for further evaluation
Monitor your symptoms closely and return to the emergency department with any acute worsening/new symptoms or any other concerns
Interventions
Interventions:
*Risk Screen - Suicide Last Done: 10/27/24 16:47
*General Assessment Last Done: 10/27/24 16:47
*ED COVID-19 Vaccine History Last Done: 10/27/24 16:47
*Nursing Disposition Last Done: 10/27/24 22:20
ED-Skin Assessment Last Done: 10/27/24 20:34
Discharge Date and Time
Discharge Date/Time: 10/27/24 23:55
Print Language: HONDURAN
[2024-10-27] MEDS: KEFLEX 500 MG PO (22:12)
== END 2024-10-27 23:55 | disposition home or self-care (01) ==
LOC: EMR 16:45
PROVIDERS: EMERGENCY PHYSICIAN Emergency Medicine; FAMILY PHYSICIAN Nurse Practitioner Adult Health
DX: L03.113 Cellulitis of right upper limb (principal); W22.09XA Striking against other stationary object, initial encounter; S61.411A Laceration without foreign body of right hand, initial encounter; I10 Essential (primary) hypertension; F17.200 Nicotine dependence, unspecified, uncomplicated
CPT/HCPCS: 99283

== ENCOUNTER → 2024-11-11 07:07 | Outpatient (REF) | payer OTHER, SELFPAY | LOC: MRI 3T 07:07 | PROVIDERS: ATTENDING PHYSICIAN Physician Assistant Surgical; FAMILY PHYSICIAN Nurse Practitioner Adult Health | DX: M54.50 Low back pain, unspecified (principal); M54.16 Radiculopathy, lumbar region | CPT/HCPCS: 72148 ==